=== PATIENT | female | born 1945 | race Caucasian/White ===

== ENCOUNTER 2021-04-01 06:15 | Day surgery (SDC) | payer MEDICARE, BC ==
[~2021-04-01] VITALS: Ht 157.5 cm; Wt 68.9 kg
[2021-04-01] VITALS (11 sets, daily range): BP systolic 106–147; BP diastolic 44–77; PULSE 55–85; TEMP 97.3–98.6
[~2021-04-01 06:15] MED LIST: ASPIRIN 32325 MG/TAB PO; CALCIUM 600600 MG PO; CIPRO 500MG TA500 MG PO; MOBIC15 MG PO; OMEGA-3 FISH1200 MG PO; VITAMIN D 400400 IU; ZESTRIL 10MG10 MG PO
[2021-04-01] MEDS ORDERED: PRINIVIL20 MG PO (06:51)
[2021-04-01] MEDS ORDERED: CELEBREX 200MG200 MG PO (06:52)
[2021-04-01] MEDS ORDERED: HCTZ 25MG TAB25 MG PO (06:52)
[2021-04-01] MEDS ORDERED: LIPITOR 10MG10 MG PO (06:52)
[2021-04-01] MEDS ORDERED: MASON NATURAL1200 MG PO (06:52)
[2021-04-01] MEDS ORDERED: VITAMIN D 400400 IU PO (06:53)
[2021-04-01] MEDS ORDERED: ASPIRIN 32325 MG/TAB PO (06:53)
[2021-04-01] MEDS ORDERED: ALLERGY RELIEF PO (06:54)
[2021-04-01] MEDS ORDERED: CALCIUM 600MG+D1 TAB PO (06:54)
--- NOTE | 2021-04-01 11:40 | NUR ---
returned to room per bed from PACU, alert and oriented, IV infusing and placed on pump at 100ml/hr, on room air and O2 sat 94%, pandya cath patent draining clear yellow urine, SHERINE hose on bilateral, SCDs placed, full assessment completed, see interventions for further info, denies needs, family at bedside
--- NOTE | 2021-04-01 12:00 | NUR ---
provided ice water per her request, takes and denies needs
--- NOTE | 2021-04-01 12:40 | NUR ---
remains resting and visiting with family, denies needs
--- NOTE | 2021-04-01 13:00 | NUR ---
dozes between checks, has gross motor movement ro tight leg and is able to feel SCDs inflating on each leg, medicated with scheduled toradol 15mg slow IV
--- NOTE | 2021-04-01 13:30 | NUR ---
appears to be sleeping, resp quiet and easy
--- NOTE | 2021-04-01 14:30 | NUR ---
awake and reviewing menu and visiting with family, is able to siggle toes bilaterally and has sensation to bilateral feet, denies needs
--- NOTE | 2021-04-01 15:41 | NUR ---
sitting up in bed having a light snack, family remains at bedside
--- NOTE | 2021-04-01 15:56 | NUR ---
is moving feet and legs, had snack and tolerated well
--- NOTE | 2021-04-01 18:50 | NUR ---
resting in bed with TV on, bedside shift report given to Daria, RN
--- NOTE | 2021-04-01 20:30 | NUR ---
PT DENIES PAIN. HAS ICE PACK TO RT HIP, BULKY DRSG NOTED. CALLEJAS CATHETER TO BSD WITH YELLOW URINE. HAS IVF TO LEFT HAND, INFUSING WITHOUT PROBLEM. IS ALERT AND ORIENTED X4.
[2021-04-02 03:54] VITALS: BP 127/58; PULSE 63; TEMP 97.9
--- NOTE | 2021-04-02 05:45 | NUR ---
AMBULATES IN HALLWAY WITH ONE ASSIST AND WALKER. GAIT STEADY. STILL DENIES PAIN. SCHEDULED TORADOL GIVEN. IVF CAPPED AFTER LAST ANTIBIOTIC THIS AM.
[2021-04-02] MEDS ORDERED: ASPI325T6 PO (06:23)
[2021-04-02] MEDS ORDERED: CELEBREX 200MG200 MG PO (06:24)
[2021-04-02] MEDS ORDERED: NORCO 325 MG-7.1 TAB PO (06:24)
[2021-04-02] MEDS ORDERED: ULTRAM 50MG TAB50 MG PO (06:25)
[2021-04-02 07:06] LABS: HEMOGLOBIN 8.3 g/dl (12.5-16.0)
[2021-04-02 07:41] VITALS: BP 131/51; PULSE 81; TEMP 98.6
--- NOTE | 2021-04-02 08:00 | NUR ---
Patient is doing well this morning. No complaints of pain, giving her ultram for PT in case she does have pain. Denies nausea. Dr Lizama changed the dressing this morning. Dickey catheter discontinued. Explained that she will need to void before discharging. Discussed when to take the dressing off. No other changes at this time. Discussed discharge plan. Call light within reach.
--- NOTE | 2021-04-02 10:29 | NUR ---
Marine Steam Fitter Helper and Nurse MICHELLE Bose met with the patient to present the SEO forms. The patient understood and signed the forms. Copies provided and originals placed in chart. Following, SW met with the patient and she lives in [place] with her spouse. The patient plans to return home at discharge and has OP PT set up at [facility]. The patient is walking 130 ft with PT and they recommend home with spouse. There are no additional needs.
[2021-04-02 11:14] VITALS: BP 137/58; PULSE 79; TEMP 97.7
--- NOTE | 2021-04-02 11:58 | NUR ---
First visit from the sewing trimmer. No needs right now.
--- NOTE | 2021-04-02 13:10 | NUR ---
Patient is discharging home. Discharge instructions discussed with patient. No questions verbalized. INT discontinued. She has her prescriptions already from the pharmacy. Explained when follow up appointments are. She has her PT already set up. Copies of discharge instructions sent with patient. All belongings packed up by her family. Patient walked out via walker by Yanira CONDE.
== END 2021-04-02 13:10 | disposition home or self-care (01) ==
LOC: SDCO 06:15 → SURG 06:15 → INPTSU 06:15 → SURG 08:30 → EDSTATUS 10:45 → SURG 10:45 → INPTSU 12:28 → SURG 12:28 → SDCO 04-02 13:10 → SURG 04-02 13:10
PROVIDERS: Orthopaedic Surgery; Physician Assistant
PROC: 0SR90J9 Replacement of Right Hip Joint with Synthetic Substitute, Cemented, Open Approach (ICD-10-PCS; principal; 2021-04-01 08:30)
DX: M16.11 Unilateral primary osteoarthritis, right hip (principal)
CPT/HCPCS: A4314; A9284; C1713; C1776; J0690; J1885; J2250; J2704; J7120; J7121

== ENCOUNTER 2021-07-30 08:39 | Observation (INO) | payer MEDICARE, BC ==
[~2021-07-30] VITALS: Ht 236.2 cm; Wt 69.6 kg
[~2021-07-30 08:39] MED LIST changes: +ALLERGY RELIEF PO; +ASPI325T6 PO; +CALCIUM 600MG+D1 TAB PO; +CELEBREX 200MG200 MG PO; +HCTZ 25MG TAB25 MG PO; +LIPITOR 10MG10 MG PO; +MASON NATURAL1200 MG PO; +NORCO 325 MG-7.1 TAB PO; +PRINIVIL20 MG PO; +ULTRAM 50MG TAB50 MG PO; +VITAMIN D 400400 IU PO
[2021-10-14] VITALS (12 sets, daily range): BP systolic 107–139; BP diastolic 44–81; PULSE 67–83; TEMP 97.3–98.4
--- NOTE | 2021-10-14 05:34 | NUR ---
76 Year old female admitted to [facility] via ambulation, no use of assistive devices. Height and weight obtained. Medications and HX reviewed. Vitals obtained. Procedure verified and consent signed. Patient verbalized understanding of the procedure. Patient changed into a clean gown. L hip area scrubbed and tierra's applied to non-operative side. Warm blanket provided. IV started in L hand on first attempt with 20G. IVF scanned and are infusing without difficulty; set to 150 ml/hr. PO medications administered. Daughter was brought in from the waiting room. Call finney is at bedside. Side rails x2. Admissions was contacted due to pre-reg account status and a new ID band was provided with the corresponding account. First and last name + verified with the patient.
[2021-10-14] MEDS ORDERED: CALCIUM PO (06:04)
--- NOTE | 2021-10-14 06:40 | NUR ---
was in to visit the patient and her daughter.
--- NOTE | 2021-10-14 09:30 | NUR ---
Pt recently up to the floor from [facility]. She is alert and oriented with no pain complaints. Reports that she is not able to feel her legs and she is unable to move toes nor feel touch. Pt is tolerating clear liquids, reports she is not hungry for a meal at this time. Daughter is present in the room. Heart rate regular, lung sounds clear, active bowel sounds. IV to her left hand with fluids infusing. TEDs and SCDs on bilaterally. Aquacell in place to her left hip. Pt oriented to her room, all questions answered
--- NOTE | 2021-10-14 14:32 | NUR ---
Pt did have small amount of emesis. Pt reports that she did not and continues to not feel nauseated, but did have some emesis after eating. Pt stated that she does not feel she needs any nausea medication and will just wait a while before she tries to eat again
[2021-10-14] MEDS ORDERED: CELEBREX 200MG200 MG PO (15:47)
--- NOTE | 2021-10-14 18:45 | NUR ---
pt sitting up in recliner, eating dinner reports several episodes of emesis that "come out of nowhere" 3 episodes so far, does not feel nauseated, asked for some toast and that was provided. emesis is mostly liquid with small amt of undigested food.
--- NOTE | 2021-10-14 20:22 | NUR ---
pt reported 3 more episodes of emesis, restarted IVF @60 cc/hr and IV phenergan dose given, transferred pt into bed using walker and assist of 1.
[2021-10-15 03:24] VITALS: BP 109/49; PULSE 93; TEMP 99.1
[2021-10-15] MEDS ORDERED: NORCO 325 MG-7.1 TAB PO (06:11)
--- NOTE | 2021-10-15 06:51 | NUR ---
pt reports pain well controlled thru the noc, IVF @60cc/hr, no further emesis since phenergan given. pandya patent and secure with clear yellow urine, report given to WAYNE Hays he will dc pandya this am. dressing to left hip CDI.
[2021-10-15 07:17] LABS: HEMATOCRIT 25.3 % (37.0-47.0); HEMOGLOBIN 8.2 g/dl (12.5-16.0)
[2021-10-15 08:00] VITALS: BP 106/38; PULSE 89; TEMP 98.7
--- NOTE | 2021-10-15 09:27 | NUR ---
PT UP TO RECLINER FOR BREAKFAST, COMPLETED THERAPY. DRESSING CHANGE COMPLETED BY PHYSICIAN. INSTRUCTED ON DRESSING CARE AT HOME. PT VERBALIZED UNDERSTANDING. PLAN ON DISCHARGE LATER THIS AFTERNOON.
[2021-10-15 12:13] VITALS: BP 108/51; PULSE 89; TEMP 97.8
--- NOTE | 2021-10-15 12:25 | NUR ---
Health Policy Nurse met with patient to discuss discharge planning. Patient lives in [place] with her , Derek (ph#[phone]) [address] Dr. Charissa Delong for primary care. Patient obtains medications from [facility] with no difficulties. Patient has a front wheeled walker and no other DME. Patient reports she is independent with ADLS and plans to return home upon discharge. Patient states she has outpatient therapy set up at the [facility]. Discharge Plan: Home with outpatient therapy
--- NOTE | 2021-10-15 14:56 | NUR ---
DISCHARGE INSTRUCTIONS REVIEWED WITH PT AND . QUESTIONS SOLICITED AND ANSWERED. PT LEFT UNIT BY WHEEL CHAIR.
== END 2021-10-15 14:58 | disposition home or self-care (01) ==
LOC: INPTSU 10-14 05:42 → SURG 10-14 05:42
PROVIDERS: Physician Assistant; ADMIT Orthopaedic Surgery
DX: M16.12 Unilateral primary osteoarthritis, left hip (principal); M54.16 Radiculopathy, lumbar region; I10 Essential (primary) hypertension; M06.9 Rheumatoid arthritis, unspecified; E78.5 Hyperlipidemia, unspecified; E78.00 Pure hypercholesterolemia, unspecified; D64.9 Anemia, unspecified; Z79.1 Long term (current) use of non-steroidal anti-inflammatories (NSAID); Z96.641 Presence of right artificial hip joint; Z79.82 Long term (current) use of aspirin; Z79.899 Other long term (current) drug therapy
CPT/HCPCS: A4314; A9284; C1713; C1776; J0690; J1885; J2250; J2270; J2550; J2704; J7120; J7121